=== PATIENT | female | born 2000 | race American Indian/Alaskan Native ===

== ENCOUNTER 2019-12-17 15:47 | Emergency (ER) | payer MEDICAID ==
--- NOTE | 2019-12-17 16:36 | Event Note ---
ED Screening Note Date of service: 12/17/19 Time: 16:35 ED Screening Note: Pt complains of chest pain x 2 days hx of cardiomegaly and lupus This initial assessment/diagnostic orders/clinical plan/treatment(s) is/are subject to change based on patients health status, clinical progression and re- assessment by fellow clinical providers in the ED. Further treatment and workup at subsequent clinical providers discretion. Patient/guardian urged not to elope from the ED as their condition may be serious if not clinically assessed and managed. Initial orders include: labs CXR ekg
[2019-12-17 17:21] LABS: Eosinophils % (Auto) 0.5 % (0.0-4.3); Hemoglobin 13.1 gm/dl (10.1-14.3); Lymphocytes # (Auto) 1.4 K/mm3 (1.2-5.4); Lymphocytes % (Auto) 38.2 % (13.4-35.0); Mean Corpuscular HGB Conc 33 % (30-34); Mean Corpuscular Volume 78 fl (79-97); Monocytes # (Auto) 0.4 K/mm3 (0.0-0.8); Monocytes % (Auto) 10.4 % (0.0-7.3); Platelet Count 263 K/mm3 (140-440)
[2019-12-17 17:39] LABS: Alanine Aminotransferase 20 units/L (7-56); Albumin 4.4 g/dL (3.9-5); Blood Urea Nitrogen 13 mg/dL (7-17); Calcium 9.1 mg/dL (8.4-10.2); Hemolysis Index 424
[2019-12-17 17:42] LABS: BUN/Creatinine Ratio 22
--- NOTE | 2019-12-17 17:44 | XRay Report ---
CHEST 2 VIEWS INDICATION / CLINICAL INFORMATION: chest pain, hx of cardiomegaly. COMPARISON: None available. FINDINGS: SUPPORT DEVICES: None. HEART / MEDIASTINUM: No significant abnormality. LUNGS / PLEURA: No significant pulmonary or pleural abnormality. No pneumothorax. ADDITIONAL FINDINGS: No significant additional findings. IMPRESSION: 1. No acute findings. Signer Name: Matias Sepulveda MD Signed: 12/17/2019 5:40 PM Workstation Name: [id number]
[2019-12-17] MEDS ORDERED: predniSONE 20 MG TAB PO ONE (21:59)
[2019-12-17] MEDS ORDERED: IBUPROFEN 800 MG TAB PO ONE (21:59)
--- NOTE | 2019-12-17 22:07 | Emergency Department Report ---
ED Medical Clearance HPI - General Chief complaint: Medical Clearance Stated complaint: RX REFILL Time Seen by Provider: 12/17/19 16:32 Source: patient Mode of arrival: Ambulatory Limitations: No Limitations - History of Present Illness Initial comments: Patient is a 19-year-old -Malag[place] female with history of lupus who presents stating requesting medication refill current regimen includes prednisone hydroxychloriquine 1 ibuprofen times p.o. patient states traveling will be returning to home at the end of the week however does not have medica tions with the. Rates symptoms at 3/10 today generalized body aches abdominal burning and chest wall pain. This is usual symptoms for lupus flare for this patient. pt denies sob, no n/v no back pain no dizziness, no lightheadedness no fever or chills. MD Complaint: medical clearance request Onset/Timin -: days(s) Alledged Intoxication: No Compliant with Home Medications: No Associated Symptoms: chest pain (chest wall pain bodyaches ). denies: palpitations, cough, fever/chills, nausea/vomiting, syncope, weakness Home medications: Previous Rx's Medication Instructions Recorded Last Taken Type Ibuprofen [Motrin 600 MG tab] 600 mg PO Q8H PRN #30 tablet 09/03/14 Unknown Rx Calcium Carbonate [Tums 500MG CHEW] 500 mg PO BID #30 tab 12/17/19 Unknown Rx Ibuprofen [Motrin 800 MG tab] 800 mg PO Q8HR PRN #30 tablet 12/17/19 Unknown Rx predniSONE [Deltasone] 10 mg PO QDAY #7 tab 12/17/19 Unknown Rx Allergies/Adverse reactions: Allergies Allergy/AdvReac Type Severity Reaction Status Date / Time amoxicillin Allergy Rash Verified 09/03/14 16:18 ED Review of Systems ROS: Stated complaint: RX REFILL Other details as noted in HPI Constitutional: denies: chills, fever Eyes: denies: eye pain, eye discharge, vision change ENT: denies: ear pain, throat pain Respiratory: denies: cough, shortness of breath, wheezing Cardiovascular: chest pain (chest wall pain). denies: palpitations Endocrine: no symptoms reported Gastrointestinal: denies: abdominal pain, nausea, diarrhea Genitourinary: denies: urgency, dysuria, discharge Musculoskeletal: denies: back pain, joint swelling, arthralgia Skin: denies: rash, lesions Neurological: denies: headache, weakness, paresthesias, vertigo Psychiatric: denies: anxiety, depression Hematological/Lymphatic: denies: easy bleeding, easy bruising ED Past Medical Hx - Past Medical History Additional medical history: lupus - Surgical History Past Surgical History?: No - Social History Smoking Status: Current Every Day Smoker - Medications Home Medications: Home Medications Medication Instructions Recorded Confirmed Last Taken Type Ibuprofen [Motrin 600 MG tab] 600 mg PO Q8H PRN #30 tablet 09/03/14 Unknown Rx Calcium Carbonate [Tums 500MG CHEW] 500 mg PO BID #30 tab 12/17/19 Unknown Rx Ibuprofen [Motrin 800 MG tab] 800 mg PO Q8HR PRN #30 tablet 12/17/19 Unknown Rx predniSONE [Deltasone] 10 mg PO QDAY #7 tab 12/17/19 Unknown Rx ED Physical Exam - General Limitations: No Limitations General appearance: alert, in no apparent distress - Head Head exam: Present: atraumatic, normocephalic - Eye Eye exam: Present: normal appearance, EOMI Pupils: Present: normal accommodation - ENT ENT exam: Present: mucous membranes moist - Neck Neck exam: Present: normal inspection, full ROM. Absent: tenderness, lymphadenopathy, thyromegaly - Respiratory Respiratory exam: Present: normal lung sounds bilaterally, chest wall tenderness. Absent: respiratory distress, wheezes, rales, rhonchi, stridor - Cardiovascular Cardiovascular Exam: Present: regular rate, normal rhythm, normal heart sounds. Absent: systolic murmur, diastolic murmur, rubs, gallop - GI/Abdominal GI/Abdominal exam: Present: soft, normal bowel sounds. Absent: distended, tenderness, guarding, rebound, rigid, bruit, hernia - Rectal Rectal exam: Present: deferred - Extremities Exam Extremities exam: Present: normal inspection, full ROM, normal capillary refill. Absent: tenderness, pedal edema, joint swelling - Back Exam Back exam: Present: normal inspection, full ROM. Absent: tenderness, CVA tenderness (R), CVA tenderness (L), muscle spasm, vertebral tenderness, rash n oted - Neurological Exam Neurological exam: Present: alert, oriented X3, CN II-XII intact, normal gait, reflexes normal. Absent: motor sensory deficit - Expanded Neurological Exam Expanded Patient oriented to: Present: person, place, time Speech: Present: fluid speech Motor strength exam: RUE: 5, LUE: 5, RLE: 5, LLE: 5 Best Eye Response (Carmela): (4) open spontaneously Best Motor Response (C[place]ela): (6) obeys commands Best Verbal Response ([place]): (5) oriented [place] Total: 15 - Psychiatric Psychiatric exam: Present: normal affect, normal mood - Skin Skin exam: Present: warm, dry, intact, normal color. Absent: rash ED Course Vital Signs 12/17/19 16:34 Temperature 98.4 F Pulse Rate 109 H Respiratory 16 Rate Blood Pressure 120/47 O2 Sat by Pulse 96 Oximetry ED Medical Decision Making - Lab Data Result diagrams: 12/17/19 16:58 12/17/19 20:37 Labs 12/17/19 12/17/19 12/17/19 16:58 16:58 16:58 WBC 3.7 L RBC 5.10 H Hgb 13.1 Hct 40.0 MCV 78 L MCH 26 L MCHC 33 RDW 16.0 H Plt Count 263 Lymph % (Auto) 38.2 H [place] % (Auto) 10.4 H Eos % (Auto) 0.5 Baso % (Auto) 1.0 Lymph # (Auto) 1.4 [place] # (Auto) 0.4 Eos # (Auto) 0.0 Baso # (Auto) 0.0 Seg Neutrophils % 49.9 Seg Neutrophils # 1.9 Sodium 135 L Potassium 6.5 H* Chloride 100.7 Carbon Dioxide 21 L Anion Gap 20 BUN 13 Creatinine 0.6 Estimated GFR > 60 BUN/Creatinine Ratio 22 Glucose 100 Calcium 9.1 Total Bilirubin 0.30 AST 43 H ALT 20 Alkaline Phosphatase 50 Troponin T < 0.010 Total Protein 8.5 H Albumin 4.4 Albumin/Globulin Ratio 1.1 HCG, Qual Negative 12/17/19 20:37 WBC RBC Hgb Hct MCV MCH MCHC RDW Plt Count Lymph % (Auto) [place] % (Auto) Eos % (Auto) Baso % (Auto) Lymph # (Auto) [place] # (Auto) Eos # (Auto) Baso # (Auto) Seg Neutrophils % Seg Neutrophils # Sodium Potassium 4.3 D Chloride Carbon Dioxide Anion Gap BUN Creatinine Estimated GFR BUN/Creatinine Ratio Glucose Calcium Total Bilirubin AST ALT Alkaline Phosphatase Troponin T Total Protein Albumin Albumin/Globulin Ratio HCG, Qual - EKG Data EKG shows normal: sinus rhythm Rate: normal - EKG Data When compared to previous EKG there are: previous EKG unavailable Interpretation: normal EKG (NSR no ST Elevation interp by ed attending ) - Radiology Data Radiology results: report reviewed, image reviewed Findings Reporting MD: Matias Sepulveda Dictation Time: December 17, 2019 16:40 Transc riptionist: Not available Insulation Applicator Date: CHEST 2 VIEWS INDICATION / CLINICAL INFORMATION: chest pain, hx of cardiomegaly. COMPARISON: None available. FINDINGS: SUPPORT DEVICES: None. HEART / MEDIASTINUM: No significant abnormality. LUNGS / PLEURA: No significant pulmonary or pleural abnormality. No pneumothorax. ADDITIONAL FINDINGS: No significant additional findings. IMPRESSION: 1. No acute findings. Signer Name: Matias Sepulveda MD Signed: 12/17/2019 4:40 PM Workstation Name: [id number] - Medical Decision Making Medication Refill, Chronic lupus without significant flare. will refill medications , enough to have pcp refill normal regimen, CXR: normal, labs noted no anemia, inital k: 6.5 , repeat 4.3 initial same hemolized, there are acute concerns, pt is currently a/ox 3 , lungs clear throughout bilat, no cp at this time, no fever or chills, pt is ambulatory with steady gait. Pt will follow up with pcp in 1-2 days. given 7 days course of medications. ED Disposition Clinical Impression: Chest wall pain Acid reflux Qualifiers: Esophagitis presence: without esophagitis Qualified Code(s): K21.9 - Gastro- esophageal reflux disease without esophagitis Disposition: DC-01 TO HOME OR SELFCARE Is pt being admited?: No Does the pt Need Aspirin: No Condition: Stable Instructions: Chest Pain (ED), Gastroesophageal Reflux Disease (ED) Prescriptions: predniSONE [Deltasone] 10 mg PO QDAY #7 tab Ibuprofen [Motrin 800 MG tab] 800 mg PO Q8HR PRN #30 tablet PRN Reason: pain Calcium Carbonate [Tums 500MG CHEW] 500 mg PO BID #30 tab Referrals: PERNELL TOMLIN MD [Staff Physician] - 3-5 Days Forms: Work/School Release Form(ED) Time of Disposition: 23:07
[2019-12-17] MEDS ORDERED: CALCIUM CARBONATE 500 MG TAB CHEW PO ONE (22:15)
[2019-12-17 23:14] VITALS: BP 131/75
== END 2019-12-17 23:14 | disposition home or self-care (01) ==
LOC: ED 15:47
DX: R07.89 Other chest pain (principal); K21.9 Gastro-esophageal reflux disease without esophagitis; F17.200 Nicotine dependence, unspecified, uncomplicated; Z79.1 Long term (current) use of non-steroidal anti-inflammatories (NSAID); Z79.899 Other long term (current) drug therapy; Z88.2 Allergy status to sulfonamides
CPT/HCPCS: 36415; 71046; 80053; 84132; 84484; 84703; 85025; 93005; 99283; J7512

== ENCOUNTER 2020-01-17 11:27 | Emergency (ER) | payer MEDICAID ==
[2020-01-17 11:45] VITALS: BP 101/71
--- NOTE | 2020-01-17 11:59 | Event Note ---
ED Screening Note ED Screening Note: lower abd pain pelvic pain two days +tingling with urination +frequency +itching no discharge sexually active without protection PMHx lupus allergy: PCN, contrast dye LNMP: 01/10/2020 This initial assessment/diagnostic orders/clinical plan/treatment(s) is/are subject to change based on patients health status, clinical progression and re- assessment by fellow clinical providers in the ED. Further treatment and workup at subsequent clinical providers discretion. Patient/guardian urged not to elope from the ED as their condition may be serious if not clinically assessed and managed. Initial orders include: ua, urine preg ACC
--- NOTE | 2020-01-17 12:34 | Emergency Department Report ---
ED General Adult HPI - General Chief complaint: Abdominal Pain Stated complaint: STD/RT SIDE PAIN Source: patient Mode of arrival: Ambulatory Limitations: No Limitations - History of Present Illness Initial comments: 19-year-old -Northern Irish female patient with history loop presents with complaints of intermittent right side pain x2 weeks and urinary frequency and tingling urination x3 days. She denies any fever/chills/sweats, hematuria, vaginal discharge, dyspareunia, nausea/vomiting/diarrhea, or history of abdominal surgeries. She does admit to history of pyelonephritis. She rates her current pain as a 5/10 in severity. She also denies any history of kidney stones - Related Data Previous Rx's Medication Instructions Recorded Last Taken Type Ibuprofen [Motrin 600 MG tab] 600 mg PO Q8H PRN #30 tablet 09/03/14 Unknown Rx Calcium Carbonate [Tums 500MG CHEW] 500 mg PO BID #30 tab 12/17/19 Unknown Rx Ibuprofen [Motrin 800 MG tab] 800 mg PO Q8HR PRN #30 tablet 12/17/19 Unknown Rx predniSONE 10 mg PO QDAY #7 tab 12/17/19 Unknown Rx Ciprofloxacin HCl [Ciprofloxacin 500 mg PO Q12HR 7 Days #14 tab 01/17/20 Unknown Rx TAB] Ketorolac [Toradol] 10 mg PO Q6H PRN 5 Days #12 tablet 01/17/20 Unknown Rx Allergies Allergy/AdvReac Type Severity Reaction Status Date / Time amoxicillin Allergy Rash Verified 09/03/14 16:18 ED Review of Systems ROS: Stated complaint: STD/RT SIDE PAIN Other details as noted in HPI Constitutional: denies: chills, diaphoresis, fever, malaise Respiratory: denies: cough, shortness of breath Cardiovascular: denies: chest pain Gastrointestinal: abdominal pain. denies: nausea, vomiting, diarrhea, constipation, hematemesis, melena, hematochezia Genitourinary: urgency, frequency. denies: hematuria, discharge, abnormal menses Musculoskeletal: as per HPI Skin: denies: rash, lesions Neurological: denies: headache Hematological/Lymphatic: denies: swollen glands ED Past Medical Hx - Past Medical History Previous Medical History?: No Additional medical history: lupus - Surgical History Past Surgical History?: No - Social History Smoking Status: Current Every Day Smoker Substance Use Type: None - Medications Home Medications: Home Medications Medication Instructions Recorded Confirmed Last Taken Type Ibuprofen [Motrin 600 MG tab] 600 mg PO Q8H PRN #30 tablet 09/03/14 Unknown Rx Calcium Carbonate [Tums 500MG CHEW] 500 mg PO BID #30 tab 12/17/19 Unknown Rx Ibuprofen [Motrin 800 MG tab] 800 mg PO Q8HR PRN #30 tablet 12/17/19 Unknown Rx predniSONE 10 mg PO QDAY #7 tab 12/17/19 Unknown Rx Ciprofloxacin HCl [Ciprofloxacin 500 mg PO Q12HR 7 Days #14 tab 01/17/20 Unknown Rx TAB] Ketorolac [Toradol] 10 mg PO Q6H PRN 5 Days #12 tablet 01/17/20 Unknown Rx ED Physical Exam - General Limitations: No Limitations General appearance: alert, in no apparent distress - Head Head exam: Present: atraumatic, normocephalic - Eye Eye exam: Present: normal appearance - ENT ENT exam: Present: mucous membranes moist - Neck Neck exam: Present: normal inspection - Respiratory Respiratory exam: Present: normal lung sounds bilaterally. Absent: respiratory distress - Cardiovascular Cardiovascular Exam: Present: regular rate, normal rhythm. Absent: systolic murmur, diastolic murmur, rubs, gallop - GI/Abdominal GI/Abdominal exam: Present: soft, normal bowel sounds. Absent: distended, tenderness, guarding, rebound, rigid - External exam: Present: normal external exam Speculum exam: Present: vaginal discharge (Minimal white). Absent: cervical discharge, vaginal bleeding, foreign body Bi-manual exam: Absent: cervical motion tendernes - Extremities Exam Extremities exam: Present: normal inspection - Back Exam Back exam: Present: normal inspection. Absent: CVA tenderness (R), CVA tenderness (L) - Neurological Exam Neurological exam: Present: alert, oriented X3 - Psychiatric Psychiatric exam: Present: normal affect, normal mood - Skin Skin exam: Present: warm, dry, intact, normal color. Absent: rash, cyanosis, diaphoretic, ecchymosis ED Course Vital Signs 01/17/20 11:42 Temperature 98.4 F Pulse Rate 84 Respiratory 16 Rate Blood Pressure 101/71 O2 Sat by Pulse 98 Oximetry ED Medical Decision Making - Medical Decision Making 19-year-old -Northern Irish female patient presents with complaints of intermittent right side pain x2 weeks and urinary frequency and tingling urination x3 days. She denies any fever/chills/sweats, hematuria, vaginal discharge, dyspareunia, nausea/vomiting/diarrhea, or history of abdominal surgeries. She does admit to history of pyelonephritis. She rates her current pain as a 5/10 in severity. She also denies any history of kidney stones Mild CVA tenderness noted on exam. UA shows elevated WBCs. No CMT noted on pelvic exam. Wet prep is negative for trichomonas. Gonorrhea chlamydia test is pending. Will treat for pyelonephritis with IV Rocephin 1 g here in ED and send patient home with prescription for ciprofloxacin. Patient to follow-up with primary care in 3 days. Patient also informed to follow-up on her gonorrhea chlamydia test results in 3 days. She is well-appearing, her vitals are normal, she is stable for discharge home. Strict return precautions were discussed in detail with patient who verbalizes understanding peer Critical care attestation.: If time is entered above; I have spent that time in minutes in the direct care of this critically ill patient, excluding procedure time. ED Disposition Clinical Impression: Pyelonephritis Disposition: DC-01 TO HOME OR SELFCARE Is pt being admited?: No Condition: Stable Instructions: Abdominal Pain (ED), Pyelonephritis, Adult Prescriptions: Ciprofloxacin HCl [Ciprofloxacin TAB] 500 mg PO Q12HR 7 Days #14 tab Ketorolac [Toradol] 10 mg PO Q6H PRN 5 Days #12 tablet PRN Reason: Pain Referrals: PRIMARY CARE, [Referring] - 2-3 Days
[2020-01-17 12:37] LABS: Bilirubin,Urine NEG (Negative); Blood,Urine SM (Negative); Color,Urine Yellow (Yellow); Mucus,Urine 3+ /HPF; Urobilinogen,Urine < 2.0 mg/dL (<2.0)
[2020-01-17 12:39] LABS: HCG Qualitative,Urine Negative (Negative)
[2020-01-17] MEDS ORDERED: cefTRIAXone/NS 1 GM/50 ML 1 GM/50 ML BAG IV ONE (13:57)
[2020-01-17] MEDS ORDERED: SODIUM CHLORIDE 0.9% 1000 ML 1,000 ML IV ONE (14:16)
[2020-01-17] MEDS ORDERED: oxyCODONE /ACETAMINOPHEN 5-325MG TAB PO ONE (15:37)
[2020-01-17] MEDS ORDERED: KETOROLAC 30 MG/1 ML INJ IV ONE (15:37)
== END 2020-01-17 16:21 | disposition home or self-care (01) ==
LOC: ED 11:27
DX: N12 Tubulo-interstitial nephritis, not specified as acute or chronic (principal); F17.200 Nicotine dependence, unspecified, uncomplicated; Z79.1 Long term (current) use of non-steroidal anti-inflammatories (NSAID); Z79.899 Other long term (current) drug therapy; Z88.1 Allergy status to other antibiotic agents
CPT/HCPCS: 81001; 81025; 87086; 87210; 87591; 96365; 96375; 99284; J0696; J1885; J7030

== ENCOUNTER 2020-03-28 15:53 | Emergency (ER) | payer MEDICAID ==
[2020-03-28 16:00] VITALS: BP 112/81
--- NOTE | 2020-03-28 16:41 | Emergency Department Report ---
ED Abdominal Pain HPI - General Chief Complaint: Extremity Injury, Upper Stated Complaint: LFT ARM/STOMACH PAIN Time Seen by Provider: 03/28/20 16:31 Source: patient Mode of arrival: Ambulatory Limitations: No Limitations - History of Present Illness Initial Comments: 19-year-old -[place] female presents to the emergency room for 2 complaints first complaint is left arm pain with a knot under it x2 weeks and abdominal pain for about 3 to 4 days. Patient states she has been taking Aleve and ibuprofen. Patient reports that her abdominal pain is achy and intermittent for the last 3 days. Patient denies any dysuria denies any vaginal discharge or vaginal bleeding. Patient does deny nausea vomiting and diarrhea but also admits she has not had a bowel movement since last week. Patient denies any trauma to her arm. Her last menstrual period was 03/18/2020. She does not have a primary care provider. MD Complaint: abdominal pain Onset/Timin -: days(s) (3 to 4 days for abdominal discomfort), week(s) (Left arm pain) Location: LLQ Radiation: none Migration to: no migration Severity scale (0 -10): 8 Quality: aching Improves With: nothing Worsens With: nothing Associated Symptoms: denies other symptoms - Related Data LMP Date: 03/19/20 Previous Rx's Medication Instructions Recorded Last Taken Type Ibuprofen [Motrin 600 MG tab] 600 mg PO Q8H PRN #30 tablet 09/03/14 Unknown Rx Calcium Carbonate [Tums 500MG CHEW] 500 mg PO BID #30 tab 12/17/19 Unknown Rx Ibuprofen [Motrin 800 MG tab] 800 mg PO Q8HR PRN #30 tablet 12/17/19 Unknown Rx predniSONE 10 mg PO QDAY #7 tab 12/17/19 Unknown Rx Ciprofloxacin HCl [Ciprofloxacin 500 mg PO Q12HR 7 Days #14 tab 01/17/20 Unknown Rx TAB] Ketorolac [Toradol] 10 mg PO Q6H PRN 5 Days #12 tablet 01/17/20 Unknown Rx Polyethylene Glycol 3350 [Miralax] 15 gm PO QDAY #119 gram 03/28/20 Unknown Rx Allergies Allergy/AdvReac Type Severity Reaction Status Date / Time amoxicillin Allergy Rash Verified 09/03/14 16:18 ED Review of Systems ROS: Stated complaint: LFT ARM/STOMACH PAIN Other details as noted in HPI Comment: All other systems reviewed and negative ED Past Medical Hx - Past Medical History Previous Medical History?: Yes Additional medical history: lupus, enlarged heart - Surgical History Past Surgical History?: No - Social History Smoking Status: Current Every Day Smoker Substance Use Type: Marijuana - Medications Home Medications: Home Medications Medication Instructions Recorded Confirmed Last Taken Type Ibuprofen [Motrin 600 MG tab] 600 mg PO Q8H PRN #30 tablet 09/03/14 Unknown Rx Calcium Carbonate [Tums 500MG CHEW] 500 mg PO BID #30 tab 12/17/19 Unknown Rx Ibuprofen [Motrin 800 MG tab] 800 mg PO Q8HR PRN #30 tablet 12/17/19 Unknown Rx predniSONE 10 mg PO QDAY #7 tab 12/17/19 Unknown Rx Ciprofloxacin HCl [Ciprofloxacin 500 mg PO Q12HR 7 Days #14 tab 01/17/20 Unknown Rx TAB] Ketorolac [Toradol] 10 mg PO Q6H PRN 5 Days #12 tablet 01/17/20 Unknown Rx Polyethylene Glycol 3350 [Miralax] 15 gm PO QDAY #119 gram 03/28/20 Unknown Rx ED Physical Exam - General Limitations: No Limitations General appearance: alert, in no apparent distress - Head Head exam: Present: atraumatic, normocephalic - Eye Eye exam: Present: normal appearance - ENT ENT exam: Present: mucous membranes moist - Neck Neck exam: Present: normal inspection, full ROM - Respiratory Respiratory exam: Absent: accessory muscle use - Cardiovascular Cardiovascular Exam: Present: regular rate, normal rhythm. Absent: systolic murmur, diastolic murmur, rubs, gallop - GI/Abdominal GI/Abdominal exam: Present: soft, normal bowel sounds. Absent: distended, tenderness, guarding - Expanded Upper Extremity Exam Left Shoulder Exam: Present: normal inspection, full ROM Upper Arm exam: Present: normal inspection, full ROM Elbow exam: Present: normal inspection, full ROM Forearm Wrist exam: Present: full ROM, tenderness, swelling (Feels like a lipoma) Hand Wrist exam: Present: normal inspection, full ROM. Absent: tenderness, swelling Neurosensory exam: Present: 2-point discrimination, radial nerve intact, ulnar nerve intact, median nerve intact Vascular: Present: normal capillary refill. Absent: vascular compromise - Back Exam Back exam: Present: full ROM - Neurological Exam Neurological exam: Present: alert, oriented X3 - Psychiatric Psychiatric exam: Present: normal affect, normal mood - Skin Skin exam: Present: warm, dry, intact, normal color. Absent: rash ED Course Vital Signs 03/28/20 15:56 Temperature 98.5 F Pulse Rate 84 Respiratory 16 Rate Blood Pressure 112/81 O2 Sat by Pulse 98 Oximetry ED Medical Decision Making - Radiology Data Radiology results: report reviewed Patient: MAMADOU OVERTON MR#: [id number] : 2000 Acct:[id number] Age/Sex: 19 / F ADM Date: 03/28/20 Loc: ED Attending Dr: Ordering Physician: SANDY MATOS Date of Service: 03/28/20 Procedure(s): XR abdomen 1V ap Accession Number(s): [id number] cc: SANDY MATOS Fluoro Time In Minutes: ABDOMEN 1 VIEW INDICATION / CLINICAL INFORMATION: llq pain. COMPARISON: None available. FINDINGS: TUBES / LINES: None. BOWEL GAS PATTERN: No significant abnormality. FREE AIR / EXTRALUMINAL GAS: None seen. ADDITIONAL FINDINGS: No significant additional findings. IMPRESSION: 1. No significant abnormality. Signer Name: Areli Cummins MD Signed: 03/28/2020 6:08 PM Workstation Name: [id number] Transcribed By: SS Dictated By: ARELI CUMMINS Electronically Authenticated By: ARELI CUMMINS Signed Date/Time: 03/28/201807 DD/ 06 TD/TT: - Medical Decision Making 19-year-old -[place] female presents to the emergency room for 2 complaints first complaint is left arm pain with a knot under it x2 weeks and abdominal pain for about 3 to 4 days. Patient states she has been taking Aleve and ibuprofen. Patient reports that her abdominal pain is achy and intermittent for the last 3 days. Patient denies any dysuria denies any vaginal discharge or vaginal bleeding. Patient does deny nausea vomiting and diarrhea but also admits she has not had a bowel movement since last week. Patient denies any trauma to her arm. Her last menstrual period was 03/18/2020. She does not have a primary care provider. Critical care attestation.: If time is entered above; I have spent that time in minutes in the direct care of this critically ill patient, excluding procedure time. ED Disposition Clinical Impression: Abdominal pain Qualifiers: Abdominal location: left lower quadrant Qualified Code(s): R10.32 - Left lower quadrant pain Disposition: - TO HOME OR SELFCARE Is pt being admited?: No Does the pt Need Aspirin: No Condition: Stable Instructions: Abdominal Pain, Adult, [id number] Additional Instructions: Urinalysis was negative for any infection no concerns for STD. Negative pregna ncy test and x-ray was negative for any acute findings. I recommend taking [id number] MiraLAX which is 1 capsule full daily until you move your bowels. Follow-up with your primary care provider. Prescriptions: Polyethylene Glycol 3350 [Miralax] 15 gm PO QDAY #119 gram Referrals: PRIMARY CARE, [Primary Care Provider] - 3-5 Days [facility] [Provider Group] - 3-5 Days [facility] [Provider Group] - 3-5 Days Forms: Work/School Release Form(ED)
[2020-03-28 17:34] LABS: Bilirubin,Urine NEG (Negative); Blood,Urine NEG (Negative); Color,Urine Yellow (Yellow); Mucus,Urine 1+ /HPF; Protein,Urine <15 mg/dL mg/dL (Negative); Urobilinogen,Urine < 2.0 mg/dL (<2.0)
[2020-03-28 17:39] LABS: HCG Qualitative,Urine Negative (Negative)
--- NOTE | 2020-03-28 18:12 | XRay Report ---
ABDOMEN 1 VIEW INDICATION / CLINICAL INFORMATION: llq pain. COMPARISON: None available. FINDINGS: TUBES / LINES: None. BOWEL GAS PATTERN: No significant abnormality. FREE AIR / EXTRALUMINAL GAS: None seen. ADDITIONAL FINDINGS: No significant additional findings. IMPRESSION: 1. No significant abnormality. Signer Name: Alexander Cummins MD Signed: 03/28/2020 6:08 PM Workstation Name: [id number]
== END 2020-03-28 18:52 | disposition home or self-care (01) ==
LOC: ED 15:53
DX: R10.32 Left lower quadrant pain (principal); F17.200 Nicotine dependence, unspecified, uncomplicated; F12.10 Cannabis abuse, uncomplicated; Z79.899 Other long term (current) drug therapy; Z88.2 Allergy status to sulfonamides
CPT/HCPCS: 74018; 81001; 81025; 99283

== ENCOUNTER 2020-04-27 19:14 | Emergency (ER) | payer MEDICAID | END 2020-04-27 19:15 | disposition left against medical advice (07) | LOC: ED 19:14 | DX: S60.811A Abrasion of right wrist, initial encounter (principal); Z53.21 Procedure and treatment not carried out due to patient leaving prior to being seen by health care provider; W55.03XA Scratched by cat, initial encounter; Y93.89 Activity, other specified; Y92.89 Other specified places as the place of occurrence of the external cause; Y99.8 Other external cause status ==

== ENCOUNTER 2020-05-10 10:14 | Emergency (ER) | payer MEDICAID ==
[2020-05-10] MEDS ORDERED: ONDANSETRON 4 MG/2 ML INJ IV ONE (13:07)
[2020-05-10] MEDS ORDERED: fentaNYL 100 MCG/2 ML INJ IV ONE (13:07)
--- NOTE | 2020-05-10 13:11 | Emergency Department Report ---
HPI <ALEXI QUINTERO - Last Filed: 05/10/20 18:08> - HPI HPI: Room 42 Patient is a 20-year-old female present with a chief complaint of abdominal and flank pain. Patient states for the past 3 days she has had pain in her right flank and diffuse abdomen. Patient states he feels a pulling pain in the right lower quadrant. Patient states today she had intermittent chest pain but has since resolved. Patient denies history of fever cough dysuria or hematuria. Patient admits to white vaginal discharge for 1 day. <CALEB SMITH - Last Filed: 05/12/20 02:41> - General Chief Complaint: Pain General Time Seen by Provider: 05/10/20 12:57 ED Past Medical Hx <ALEXI QUINTERO - Last Filed: 05/10/20 18:08> - Past Medical History Previous Medical History?: Yes Additional medical history: lupus, enlarged heart, PICC line - Surgical History Past Surgical History?: No - Family History Family history: no significant - Social History Smoking Status: Never Smoker Substance Use Type: Marijuana <CALEB SMITH - Last Filed: 05/12/20 02:41> - Medications Home Medications: Home Medications Medication Instructions Recorded Confirmed Last Taken Type Ibuprofen [Motrin 600 MG tab] 600 mg PO Q8H PRN #30 tablet 09/03/14 Unknown Rx Calcium Carbonate [Tums 500MG CHEW] 500 mg PO BID #30 tab 12/17/19 Unknown Rx Ibuprofen [Motrin 800 MG tab] 800 mg PO Q8HR PRN #30 tablet 12/17/19 Unknown Rx predniSONE 10 mg PO QDAY #7 tab 12/17/19 Unknown Rx Ciprofloxacin HCl [Ciprofloxacin 500 mg PO Q12HR 7 Days #14 tab 01/17/20 Unknown Rx TAB] Ketorolac [Toradol] 10 mg PO Q6H PRN 5 Days #12 tablet 01/17/20 Unknown Rx Polyethylene Glycol 3350 [Miralax] 15 gm PO QDAY #119 gram 03/28/20 Unknown Rx Fluconazole [Diflucan TAB] 150 mg PO QDAY #1 tablet 05/10/20 Unknown Rx Prednisone [predniSONE 5 mg (6-Day 5 mg PO .TAPER #1 tab.ds.pk 05/10/20 Unknown Rx Pack, 21 Tabs)] metroNIDAZOLE [Flagyl] 500 mg PO Q12HR #14 tab 05/10/20 Unknown Rx traMADoL [Ultram] 50 mg PO Q6HR PRN #14 tablet 05/10/20 Unknown Rx ED Review of Systems ROS: Stated complaint: CHEST PAIN, ABN PAIN, BACK PAIN Other details as noted in HPI <ALEXI QUINTERO - Last Filed: 05/10/20 18:08> ROS: Stated complaint: CHEST PAIN, ABN PAIN, BACK PAIN Other details as noted in HPI Constitutional: denies: fever Eyes: denies: eye pain ENT: denies: throat pain Respiratory: no symptoms reported Cardiovascular: chest pain Endocrine: no symptoms reported Gastrointestinal: abdominal pain Genitourinary: discharge. denies: dysuria, hematuria Musculoskeletal: back pain Neurological: denies: headache <CALEB SMITH - Last Filed: 05/12/20 02:41> Physical Exam - Physical Exam Vital Signs: Vital Signs 05/10/20 05/10/20 05/10/20 10:56 13:55 14:16 Temperature 99.4 F Pulse Rate 100 H Respiratory 16 18 18 Rate Blood Pressure 129/80 O2 Sat by Pulse 99 99 Oximetry 05/10/20 14:55 Temperature Pulse Rate Respiratory 18 Rate Blood Pressure O2 Sat by Pulse Oximetry <ALEXI QUINTERO C - Last Filed: 05/10/20 18:08> - Physical Exam Vital Signs: Vital Signs 05/10/20 10:56 Temperature 99.4 F Pulse Rate 100 H Respiratory 16 Rate Blood Pressure 129/80 O2 Sat by Pulse 99 Oximetry Physical Exam: GENERAL: The patient is well-developed well-nourished female lying on stretcher not appearing to be in acute distress. [] HEENT: Normocephalic. Atraumatic. Extraocular motions are intact. Patient has moist mucous membranes. NECK: Supple. Trachea midline CHEST/LUNGS: Clear to auscultation. There is no respiratory distress noted. HEART/CARDIOVASCULAR: Regular. There is no tachycardia. There is no gallop rub or murmur. ABDOMEN: Abdomen is soft, with tenderness to palpation in the right lower quadrant, suprapubic and left lower quadrants. There is no rebound or guarding. Patient has normal bowel sounds. There is no abdominal distention. SKIN: There is no rash. There is no edema. There is no diaphoresis. NEURO: The patient is awake, alert, and oriented. The patient is cooperative. The patient has no focal neurologic deficits. The patient has normal speech MUSCULOSKELETAL: There is right CVA tenderness. There is no evidence of acute injury. <CALEB SMITH - Last Filed: 05/12/20 02:41> ED Course Vital Signs 05/10/20 05/10/20 05/10/20 10:56 13:55 14:16 Temperature 99.4 F Pulse Rate 100 H Respiratory 16 18 18 Rate Blood Pressure 129/80 O2 Sat by Pulse 99 99 Oximetry 05/10/20 14:55 Temperature Pulse Rate Respiratory 18 Rate Blood Pressure O2 Sat by Pulse Oximetry - Reevaluation(s) Reevaluation #1: 05/10/20 18:08 Patient was seen by Dr. Smith in place after discharge at time of his emergency department at 4 PM. I was present to the chart at this time by nursing provider stating that patient requested additional pain medicine prior to discharge and requested Diflucan to prevent yeast infection since being prescribed antib iotics. Ordered 1 dose of morphine IV prior to discharge and will write a prescription for Diflucan <ALEXI QUINTERO - Last Filed: 05/10/20 18:08> Vital Signs 05/10/20 10:56 Temperature 99.4 F Pulse Rate 100 H Respiratory 16 Rate Blood Pressure 129/80 O2 Sat by Pulse 99 Oximetry <CALEB SMITH - Last Filed: 05/12/20 02:41> ED Medical Decision Making - Lab Data Result diagrams: 05/10/20 13:13 05/10/20 13:13 <ALEXI QUINTERO - Last Filed: 05/10/20 18:08> - Lab Data Result diagrams: 05/10/20 13:13 05/10/20 13:13 - Radiology Data Radiology results: report reviewed (Chest x-ray), image reviewed (Chest x-ray) interpreted by me: Chest x-ray-no focal infiltrates, no pneumothorax. No foreign body seen CHEST 1 VIEW 05/10/2020 2:25 PM INDICATION / CLINICAL INFORMATION: chest pain. COMPARISON: 12/17/2019 FINDINGS: SUPPORT DEVICES: None. HEART / MEDIASTINUM: No significant abnormality. LUNGS / PLEURA: No significant pulmonary or pleural abnormality. No pneumothorax. ADDITIONAL FINDINGS: No significant additional findings. IMPRESSION: 1. No acute findings. Signer Name: Matias Sepulveda MD Signed: 05/10/2020 3:02 PM Workstation Name: [id number] CT ABDOMEN AND PELVIS WITHOUT CONTRAST INDICATION / CLINICAL INFORMATION: Right flank/right lower quadrant pain. TECHNIQUE: Axial CT images were obtained through the abdomen and pelvis without IV contrast. All CT scans at this location are performed using CT dose reduction for ALARA by means of automated exposure control. COMPARISON: None available. FINDINGS: LOWER CHEST: No significant abnormality LIVER: No significant abnormality GALLBLADDER/BILIARY TREE: No significant abnormality PANCREAS: No significant abnormality SPLEEN: No significant abnormality ADRENALS: No significant abnormality KIDNEYS / URETER: No significant abnormality URINARY BLADDER: Bladder is partially decompressed, though grossly unremarkable. REPRODUCTIVE ORGANS: Uterus is unremarkable for age. There is a 2.8 cm hypodensity in the right adnexa. Small volume free fluid in the pelvis. STOMACH / SMALL BOWEL: Stomach and small bowel are normal in caliber. No evidence of bowel inflammation. COLON: The colon is unremarkable. The appendix is normal in caliber. LYMPH NODES: No significant adenopathy. VASCULATURE: No significant abnormality. OTHER: No free air or focal fluid collection is identified. SKELETAL SYSTEM: No acute osseous findings. IMPRESSION: 1. 2.8 cm right adnexal cystic structure with small volume free fluid in the pelvis, most likely reflects rupture of a corpus luteal cyst. 2. Otherwise, no acute abnormality of the abdomen or pelvis. Signer Name: Dylan Simmons MD Signed: 05/10/2020 2:43 PM Workstation Name: [id number] - Differential Diagnosis Pyelonephritis, UTI, vaginitis, PE, GERD, appendicitis <CALEB SMITH - Last Filed: 05/12/20 02:41> Critical care attestation.: If time is entered above; I have spent that time in minutes in the direct care of this critically ill patient, excluding procedure time. <ALEXI QUINTERO - Last Filed: 05/10/20 18:08> Critical care attestation.: If time is entered above; I have spent that time in minutes in the direct care of this critically ill patient, excluding procedure time. <CALEB SMITH - Last Filed: 05/12/20 02:41> ED Disposition <ALEXI QUINTERO - Last Filed: 05/10/20 18:08> Is pt being admited?: No Does the pt Need Aspirin: No <CALEB SMITH - Last Filed: 05/12/20 02:41> Clinical Impression: Bacterial vaginosis, Acute abdominal pain, Atypical chest pain Disposition: TO HOME OR SELFCARE Condition: Stable Instructions: Nonspecific Chest Pain, Adult, Bacterial Vaginosis (ED) Additional Instructions: Return to the emergency department should you develop worsening symptoms, inability to tolerate food or liquids, high fever or any other concerns Prescriptions: Fluconazole [Diflucan TAB] 150 mg PO QDAY #1 tablet metroNIDAZOLE [Flagyl] 500 mg PO Q12HR #14 tab Prednisone [predniSONE 5 mg (6-Day Pack, 21 Tabs)] 5 mg PO .TAPER #1 tab.ds.pk traMADoL [Ultram] 50 mg PO Q6HR PRN #14 tablet PRN Reason: Pain Referrals: PRIMARY CARE,MD [Primary Care Provider] - 3-5 Days Forms: [facility] Treatment and Prevention
[2020-05-10] MEDS ORDERED: methylPREDNISolone Sod Succinate 125 MG/2 ML INJ IV ONE (13:47)
[2020-05-10] MEDS ORDERED: diphenhydrAMINE 50 MG/ML VIAL IV ONE (13:47)
[2020-05-10 14:25] LABS: Alanine Aminotransferase 13 units/L (7-56); Albumin 3.9 g/dL (3.9-5); Blood Urea Nitrogen 7 mg/dL (7-17); Calcium 9.1 mg/dL (8.4-10.2); Creatine Kinase MB < 1.0 ng/mL (0.0-4.0); Hemolysis Index 34
[2020-05-10 14:29] LABS: BUN/Creatinine Ratio 18
[2020-05-10 14:37] LABS: Bilirubin,Urine NEG (Negative); Blood,Urine NEG (Negative); Color,Urine Yellow (Yellow); Mucus,Urine 1+ /HPF; Urobilinogen,Urine < 2.0 mg/dL (<2.0)
[2020-05-10 14:56] LABS: Hematocrit 45.9 % (30.3-42.9); Hemoglobin 15.5 gm/dl (10.1-14.3); Mean Corpuscular HGB Conc 34 % (30-34); Mean Corpuscular Volume 82 fl (79-97); Platelet Count 190 K/mm3 (140-440); Red Blood Count 5.59 M/mm3 (3.65-5.03); Red Cell Distribution Width 13.7 % (13.2-15.2)
--- NOTE | 2020-05-10 15:47 | Cat Scan Report ---
CT ABDOMEN AND PELVIS WITHOUT CONTRAST INDICATION / CLINICAL INFORMATION: Right flank/right lower quadrant pain. TECHNIQUE: Axial CT images were obtained through the abdomen and pelvis without IV contrast. All CT scans at this location are performed using CT dose reduction for ALARA by means of automated exposure control. COMPARISON: None available. FINDINGS: LOWER CHEST: No significant abnormality LIVER: No significant abnormality GALLBLADDER/BILIARY TREE: No significant abnormality PANCREAS: No significant abnormality SPLEEN: No significant abnormality ADRENALS: No significant abnormality KIDNEYS / URETER: No significant abnormality URINARY BLADDER: Bladder is partially decompressed, though grossly unremarkable. REPRODUCTIVE ORGANS: Uterus is unremarkable for age. There is a 2.8 cm hypodensity in the right adnex a. Small volume free fluid in the pelvis. STOMACH / SMALL BOWEL: Stomach and small bowel are normal in caliber. No evidence of bowel inflammati on. COLON: The colon is unremarkable. The appendix is normal in caliber. LYMPH NODES: No significant adenopathy. VASCULATURE: No significant abnormality. OTHER: No free air or focal fluid collection is identified. SKELETAL SYSTEM: No acute osseous findings. IMPRESSION: 1. 2.8 cm right adnexal cystic structure with small volume free fluid in the pelvis, most likely refl ects rupture of a corpus luteal cyst. 2. Otherwise, no acute abnormality of the abdomen or pelvis. Signer Name: Dylan Simmons MD Signed: 05/10/2020 3:43 PM Workstation Name: [id number]
--- NOTE | 2020-05-10 16:06 | XRay Report ---
CHEST 1 VIEW 05/10/2020 2:25 PM INDICATION / CLINICAL INFORMATION: chest pain. COMPARISON: 12/17/2019 FINDINGS: SUPPORT DEVICES: None. HEART / MEDIASTINUM: No significant abnormality. LUNGS / PLEURA: No significant pulmonary or pleural abnormality. No pneumothorax. ADDITIONAL FINDINGS: No significant additional findings. IMPRESSION: 1. No acute findings. Signer Name: Matias Sepulveda MD Signed: 05/10/2020 4:02 PM Workstation Name: [id number]
[2020-05-10] MEDS ORDERED: AZITHROMYCIN 1 GM ORAL PWDR PACKET PO ONE (16:12)
--- NOTE | 2020-05-10 16:40 | Nuclear Medicine Report ---
NUCLEAR MEDICINE PERFUSION LUNG SCAN INDICATION / CLINICAL INFORMATION: Chest pain. TECHNIQUE: 5.5 mCi of Tc-99m MAA were given by IV. COMPARISON: Chest radiograph dated 05/10/2020. FINDINGS: PERFUSION: No significant perfusion defects. ADDITIONAL FINDINGS: None. IMPRESSION: 1. Low probability for pulmonary embolism. Signer Name: Dylan Simmons MD Signed: 05/10/2020 4:36 PM Workstation Name: [id number]
[2020-05-10] MEDS ORDERED: MORPHINE 4 MG/1 ML INJ IV ONE (18:07)
[2020-05-10 18:39] VITALS: BP 118/64
== END 2020-05-10 18:40 | disposition home or self-care (01) ==
LOC: ED 10:14
DX: N76.0 Acute vaginitis (principal); B96.89 Other specified bacterial agents as the cause of diseases classified elsewhere; R07.89 Other chest pain; R10.9 Unspecified abdominal pain; F12.10 Cannabis abuse, uncomplicated; Z79.1 Long term (current) use of non-steroidal anti-inflammatories (NSAID); Z79.2 Long term (current) use of antibiotics; Z79.899 Other long term (current) drug therapy; Z88.8 Allergy status to other drugs, medicaments and biological substances
CPT/HCPCS: 36415; 71045; 74176; 78580; 80053; 81001; 82550; 82553; 83690; 84484; 84703; 85025; 85379; 87210; 87591; 96374; 96375; 99285; A9540; J1200; J2270; J2405; J2930; J3010

== ENCOUNTER 2020-06-30 12:45 | Emergency (ER) | payer MEDICAID ==
[2020-06-30 12:51] VITALS: BP 128/76
--- NOTE | 2020-06-30 13:19 | XRay Report ---
CHEST 2 VIEWS INDICATION / CLINICAL INFORMATION: chest pain. COMPARISON: 05/10/2020 FINDINGS: SUPPORT DEVICES: None. HEART / MEDIASTINUM: No significant abnormality. LUNGS / PLEURA: No significant pulmonary or pleural abnormality. No pneumothorax. ADDITIONAL FINDINGS: No significant additional findings. IMPRESSION: 1. No acute findings. Signer Name: Matias Sepulveda MD Signed: 06/30/2020 1:14 PM Workstation Name: [id number]
--- NOTE | 2020-07-02 17:25 | Electrocardiograph Report ---
[facility] Test Date: 2020-06-30 Test Time: 13:17:56 Pat Name: MAMADOU OVERTON Department: Room: Gender: F Frame Tender: YOUNG : 2000 Requested By: ED DOC Order Number: [id number] Reading MD: Blaine Otto Measurements Intervals [place] Rate: 75 P: 76 CA: 154 QRS: 69 QRSD: 85 T: 46 QT: 386 QTc: 432 Interpretive Statements Sinus rhythm Probable left atrial enlargement No previous ECG available for comparison Electronically Signed On 07-02-2020 17:25:27 EDT by Blaine Otto
== END 2020-06-30 17:30 ==
LOC: ED 12:45
DX: R07.89 Other chest pain (principal); Z53.21 Procedure and treatment not carried out due to patient leaving prior to being seen by health care provider
CPT/HCPCS: 71046; 93005